=== PATIENT | male | born 1955 | race Caucasian/White ===

== ENCOUNTER 2018-06-15 21:01 | Emergency (ER) | payer OTHER ==
[2018-06-15] MEDS ORDERED: FAMOTIDINE 20 MG/2 ML VIAL IV STA (21:49)
--- NOTE | 2018-06-15 21:52 | ED ---
General Adult HPI - General Chief complaint: Allergic Reaction Stated complaint: Allergic Reaction Time Seen by Provider: 06/15/18 21:29 Source: patient, EMS, RN notes reviewed, old records reviewed Mode of arrival: EMS Limitations: no limitations - History of Present Illness Initial comments: 63-year-old male patient past medical history of type 2 diabetes, hypertension, gout presents ED for evaluation of possible anaphylaxis. 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 Today while be keeping patient was stung approximately 6 times. Patient then began to develop hives as well as swelling of the tongue. EMS was called. In transit the EMS patient was administered one 5 mg epinephrine, 50 mg Benadryl, 145 mg Solu- Medrol. Patient states that he was having some difficulty breathing prior to administration these medications. Patient is now having no difficulty breathing. Patient still does have some minor swelling of tongue. Patient denies any chest pain shortness breath abdominal pain nausea vomiting diarrhea or rash. Systemic: Pt denies fatigue, myalgia, fever/chills, rash. Pt denies weakness, night sweats, weight loss. Neuro: Pt denies headache, visual disturbances, syncope or pre-syncope. HEENT: Pt denies ocular discharge or irritation, otalgia, rhinorrhea, pharyngitis or notable lymphadenopathy. Cardiopulmonary: Pt denies chest pain, SOB, heart palpitations, dyspnea on exertion. Abdominal/GI: Pt denies abdominal pain, n/v/d. : Pt denies dysuria, burning w/ urination, frequency/urgency. Denies new onset urinary or bowel incontinence. MSK: Pt denies myalgia, loss of strength or function in extremities. Neuro: Pt denies new onset weakness, paresthesias. - Related Data Home Medications Medication Instructions Recorded Confirmed Allopurinol [Zyloprim] 300 mg PO DAILY 06/15/18 06/15/18 Amoxic-Pot Clav 875-125Mg 1 tab PO Q12H 06/15/18 06/15/18 [Augmentin 875-125] Dulaglutide [Trulicity] 1.5 mg SQ HALE 06/15/18 06/15/18 Ibuprofen [Motrin Ib] 400 mg PO Q6H PRN 06/15/18 06/15/18 Metoprolol Succinate (ER) [Toprol 50 mg PO DAILY 06/15/18 06/15/18 Xl] Tamsulosin [Flomax] 0.4 mg PO DAILY 06/15/18 06/15/18 metFORMIN HCL [Glucophage] 500 mg PO BID 06/15/18 06/15/18 Previous Rx's Medication Instructions Recorded EPINEPHrine [Epipen 2-Marc] 0.3 mg IM ONCE PRN #1 pack 06/15/18 Famotidine [Pepcid] 20 mg PO BID 5 Days #10 tablet 06/15/18 diphenhydrAMINE [Benadryl] 1 - 2 tab PO Q6HR PRN #30 capsule 06/15/18 predniSONE 50 mg PO DAILY #5 tab 06/15/18 Allergies Allergy/AdvReac Type Severity Reaction Status Date / Time FRANCOIS Inhibitors AdvReac Cough Verified 06/15/18 21:18 Review of Systems ROS Statement: Those systems with pertinent positive or pertinent negative responses have been documented in the HPI. ROS Other: All systems not noted in ROS Statement are negative. Past Medical History Past Medical History: Diabetes Mellitus, Hypertension Additional Past Medical History / Comment(s): gout History of Any Multi-Drug Resistant Organisms: None Reported Past Surgical History: Joint Replacement, Orthopedic Surgery Additional Past Surgical History / Comment(s): right knee, total left rotator cuff Past Psychological History: No Psychological Hx Reported Smoking Status: Never smoker Past Alcohol Use History: Rare Past Drug Use History: None Reported General Exam - General Exam Comments Initial Comments: Constitutional: NAD, AOX3, Pt has pleasant affect. HEENT: NC/AT, trachea midline, neck supple, no lymphadenopathy. Posterior pharynx non erythematous, without exudates. External ears appear normal, without discharge. Mucous membranes moist. Eyes PERRLA, EOM intact. There is no scleral icterus. No pallor noted. Mild tongue swelling, resolved On second evaluation. Cardiopulmonary: RRR, no murmurs, rubs or gallops, no JVD noted. Lungs CTAB in anterior and posterior pickett. No peripheral edema. Abdominal exam: Abdomen soft and non-distended. Abdomen non-tender to palpation in all 4 quadrants. Bowel sounds active in LLQ. No hepatosplenomegaly. No ecchymosis Neuro: CN II-XII grossly intact. No nuchal rigidity. MSK: No posterior calf tenderness bilaterally, homans sign negative bilaterally. Posterior tibialis and radial pulse +2 bilaterally. Sensation intact in upper and lower extremities. Full active ROM in upper and lower extremities, 5/5 stregnth. Derm: No rash noted. Limitations: no limitations Course Vital Signs 06/15/18 06/15/18 06/15/18 21:05 21:19 22:11 Temperature 97.7 F Pulse Rate 118 H 118 H Respiratory 22 22 16 Rate Blood Pressure 133/77 134/71 O2 Sat by Pulse 97 96 Oximetry Medical Decision Making - Medical Decision Making 63-year-old male patient past medical history of type 2 diabetes, hypertension, gout presents ED for evaluation of possible anaphylaxis. 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 Today while be keeping patient was stung approximately 6 times. Patient then began to develop hives as well as swelling of the tongue. EMS was called. In transit the EMS patient was administered one 5 mg epinephrine, 50 mg Benadryl, 145 mg Solu- Medrol. Patient states that he was having some difficulty breathing prior to administration these medications. Patient is now having no difficulty breathing. Patient still does have some minor swelling of tongue. Patient denies any chest pain shortness breath abdominal pain nausea vomiting diarrhea or rash. Patient vital signs the displayed mild tachycardia, however patient does state that this is his baseline heart rate and he has had multiple evaluations in the past. Initial physical exam displayed mild tongue swelling, resolved upon second evaluation. No rash noted, no abdominal tenderness. Patient asymptomatic for 2 hours of observation, administered Pepcid in ED. Patient discharged with Benadryl Pepcid and steroids. She'll also be prescribed EpiPen. Patient return to ER if condition worsens in any way. Patient will avoid bees going forward. Case discussed with Dr. Dominguez. Disposition Clinical Impression: Allergic reaction Disposition: HOME SELF-CARE Condition: Stable Instructions (If sedation given, give patient instructions): Anaphylaxis (ED), General Allergic Reaction (ED) Additional Instructions: Patient to adhere to previously discussed treatment plan and will take medication(s) as directed. Patient to follow up with PCP in 1-2 days. Patient to return to ED if symptoms do not improve. Take medications as directed. Use EpiPen for anaphylaxis. Return to ER if condition worsens in any way. Prescriptions: diphenhydrAMINE [Benadryl] 1 - 2 tab PO Q6HR PRN #30 capsule PRN Reason: Allergic Reaction EPINEPHrine [Epipen 2-Marc] 0.3 mg IM ONCE PRN #1 pack PRN Reason: Anaphylaxis Famotidine [Pepcid] 20 mg PO BID 5 Days #10 tablet predniSONE 50 mg PO DAILY #5 tab Is patient prescribed a controlled substance at d/c from ED?: No Referrals: Maria D Winslow DO [Primary Care Provider] - 1-2 days
[2018-06-15 22:13] VITALS: RESP 16
[2018-06-15 23:44] VITALS: BP 132/75; PULSE 105; TEMP 97.8
== END 2018-06-15 23:44 | disposition home or self-care (01) ==
LOC: EC 21:01
DX: T78.40XA Allergy, unspecified, initial encounter (principal); R00.0 Tachycardia, unspecified; E11.9 Type 2 diabetes mellitus without complications; I10 Essential (primary) hypertension; M10.9 Gout, unspecified; Z79.84 Long term (current) use of oral hypoglycemic drugs; Z79.899 Other long term (current) drug therapy; Z88.8 Allergy status to other drugs, medicaments and biological substances; Z96.651 Presence of right artificial knee joint
CPT/HCPCS: 96374; 99285